=== PATIENT | female | born 1990 ===

== ENCOUNTER 2024-03-08 07:19 | Day surgery (SDC) | payer OTHER ==
[~2024-03-08 07:19] MED LIST: DAYSEE 0.15-0.1 EACH PO
[2024-03-08] MEDS ORDERED: POVIDONE-IODINE 118 ML BOTT TOP ONE (11:45)
[2024-03-08] MEDS ORDERED: LIDOCAINE HCL 1%/EPINEPHRINE 20ML VIAL IJ ONE (12:00)
[2024-03-08] MEDS ORDERED: RINGERS SOLUTION,LACTATED 1,000 ML IV SCH (12:10)
[2024-03-08] MEDS ORDERED: CEFOXITIN SODIUM 2,000 MG VIAL IV STA (12:11)
[2024-03-08] MEDS ORDERED: CELECOXIB 200 MG CAPSULE PO STA (12:12)
[2024-03-08] MEDS ORDERED: ACETAMINOPHEN 325 MG TABLET PO STA (12:12)
[2024-03-08] MEDS ORDERED: GABAPENTIN 100 MG CAPSULE PO STA (12:12)
[2024-03-08] MEDS ORDERED: MORPHINE SULFATE 4 MG/ML VIAL IV ONE ×2 (12:30→17:00)
[2024-03-08] MEDS ORDERED: ONDANSETRON HCL 2 MG/ML VIAL IV SCH (13:00)
[2024-03-08 13:40] LABS: HEMATOCRIT 39.1 % (36.0-45.00); HEMOGLOBIN 13.1 g/dL (12.0-15.00); MEAN CELL VOLUME 87.4 fL (80.00-100.00); MEAN CORPUSCULAR HEMOGLOBIN 29.3 pg (27.00-32.0); MEAN CORPUSCULAR HGB CONC 33.5 g/dl (32.0-36.0); PLATELET COUNT 245 K/uL (150-450); RED BLOOD COUNT 4.47 M/uL (4.00-6.00); RED CELL DISTRIBUTION WIDTH 13.7 % (11.5-14.5)
[2024-03-08 16:52] LABS: HEMATOCRIT 36.2 % (36.0-45.00); HEMOGLOBIN 12.3 g/dL (12.0-15.00); MEAN CELL VOLUME 87.2 fL (80.00-100.00); MEAN CORPUSCULAR HEMOGLOBIN 29.7 pg (27.00-32.0); MEAN CORPUSCULAR HGB CONC 34.1 g/dl (32.0-36.0); PLATELET COUNT 248 K/uL (150-450); RED BLOOD COUNT 4.15 M/uL (4.00-6.00); RED CELL DISTRIBUTION WIDTH 13.4 % (11.5-14.5)
== END 2024-03-08 17:30 | disposition home or self-care (01) ==
LOC: CIR.AMB 07:19
PROVIDERS: Surgery; ATTEND Obstetrics & Gynecology Gynecology
DX: N70.11 Chronic salpingitis (principal); N80.8 Other endometriosis